=== PATIENT | female | born 1940 | race Caucasian/White ===

== ENCOUNTER 2025-09-10 12:40 | Outpatient (CLI) | payer MEDICARE, OTHER ==
--- NOTE | 2025-09-10 17:29 | CARDIOLOGY REPORT ---
APPROVED REPORT EXAM: Comprehensive 2D, Doppler, and color-flow Echocardiogram. Patient Location: OUT-PATIENT Blood Pressure: 223 / 61 mmHg Heart Rate: 54 bpm Rhythm: SINUS BRADYCARDIA Indications ABNORMAL EKG ATRIAL FIBRILLATION HYPERTENSION (223/61, 205/58, 195/53) Armature Rewinder: MD Yuriy Previous echo: NONE, NEW PT TO [facility] 2D Dimensions RVDd 2.9 cm LVOT Diameter 2.04 (1.8-2.4cm) M-Mode Dimensions Left Atrium(MM) 3.40 (2.5-4.0cm) IVSd 0.92 (0.7-1.1cm) LVDd 4.08 (4.0-5.6cm) Aortic Root 2.51 (2.2-3.7cm) PWd 0.92 (0.7-1.1cm) Aortic Cusp Exc 1.84 (1.5-2.0cm) IVSs 1.57 cm MV EPSS 0.5 (<0.5cm) LVDs 2.46 (2.0-3.8cm) FS (%) 40 % PWs 1.35 cm ESV(Teich) 21.4 ml LVEF(%) 71 (>50%) Aortic Valve AoV Peak Aguila. 142.9 cm/s AoV VTI 35.9 cm AO Peak GR. 7.8 mmHg AO Mean GR. 4 mmHg LVOT VTI 25.65 cm LVOT Peak Aguila. 100.5 cm/s PEDRO (VMAX) 2.29 cm2 PEDRO (VTI) 2.33 cm2 AI P 1/2 Time 566 ms Mitral Valve MV E Velocity 93.1 cm/s MV DECEL TIME 171 ms MV A Velocity 65.5 cm/s MV PHT 65 ms E/A Ratio 1.4 MVA (PHT) 3.36 cm2 Pulmonary Valve PAEDP 12.00 mmHg Tricuspid Valve TR P. Velocity 266 cm/s RAP ESTIMATE 10 mmHg TR Peak Gr. 28 mmHg RVSP 38 mmHg Pulmonary Vein S2 Velocity 53.11 cm/s PVa Duration 108 msec LEFT VENTRICLE Normal LV size and function. Mild concentric hypertrophy. Overall LVEF is 65- 70%. GLS - 14.6 %. RIGHT VENTRICLE RV is normal size and function. Thickened RV free wall. Estimated PA systolic pressure of 38 mm of mercury. ATRIA The left atrium size is normal. AORTIC VALVE Trileaflet AV appears mild sclerotic without stenosis. Mild insufficiency. MITRAL VALVE Mild MV annular calcification without stenosis. Trace regurgitation. TRICUSPID VALVE TV appears structurally normal with trace regurgitation. PULMONIC VALVE Normal PV without stenosis, mild to moderate insufficiency. GREAT VESSELS Aortic root is normal in size. Normal appearing arch with normal flow velocities. Ascending aorta is normal in size. PERICARDIUM Normal pericardium. No effusion. Other Information Study Quality: Adequate, TDS-breast implant. Conclusion Overall LVEF is 65-70%. GLS - 14.6 %. Normal LV size and function. Mild concentric hypertrophy. RV is normal size and function. Thickened RV free wall. Estimated PA systolic pressure of 38 mm of mercury. Trileaflet AV appears mild sclerotic without stenosis. Mild insufficiency. Mild MV annular calcification without stenosis. Trace regurgitation. TV appears structurally normal with trace regurgitation. Normal PV without stenosis, mild to moderate insufficiency. Normal pericardium. No effusion.
== END 2025-09-10 23:59 | disposition home or self-care (01) ==
LOC: CARD DIAG 12:40
PROVIDERS: ATTEND Internal Medicine Cardiovascular Disease
DX: I08.8 Other rheumatic multiple valve diseases (principal); R06.00 Dyspnea, unspecified; Z82.49 Family history of ischemic heart disease and other diseases of the circulatory system; R94.31 Abnormal electrocardiogram [ECG] [EKG]
CPT/HCPCS: 93306